=== PATIENT | male | born 1945 | race Caucasian/White ===

== ENCOUNTER 2017-09-04 16:49 | Emergency (ER) | payer MEDICARE, OTHER ==
[~2017-09-04 16:49] MED LIST: ISOVUE-370 76%-LOCM 1 ML ONE; Iopamidol 370 76% 50 ML VIAL FS ONE
[2017-09-04] MEDS ORDERED: HYDROcodone/Acetaminophen 5/325 mg Tablet ONE (18:00)
[2017-09-04 18:08] LABS: #Lymphocytes 1.3 thou/uL (1.20-3.40); #Monocytes 0.7 thou/uL (0.11-0.59); #Neutrophils 13.8 thou/uL (1.40-6.50); %Basophils 0.1 % (0.0-1.0); %Eosinophils 0.3 % (0.0-10.0); %Lymphocytes 7.9 % (21.0-51.0); %Monocytes 4.4 % (0.0-10.0); %Neutrophils 87.4 % (42.0-75.0); Hemoglobin 12.9 g/dL (14.0-18.0); Mean Corpuscular HGB CONC 34.2 g/dL (32.0-36.0); Mean Corpuscular Volume 99.3 fl (80.0-94.0); Mean Platelet Volume 7.6 fL (7.4-10.4); Platelet Count 190 thou/uL (130-400); RBC Distribution Width 12.2 % (11.5-14.5); White Blood Cell (WBC) Count 15.8 thou/uL (4.8-10.8)
[2017-09-04 18:15] LABS: PTT 25.6 SEC (22.9-36.1); Prothrombin Time 13.6 SEC (12.0-14.7)
[2017-09-04 18:35] LABS: Anion Gap 11 mmol/L (10-20); BUN (Urea Nitrogen) 17 mg/dL (8.4-25.7); Calc. Creatinine Clearance 0 mL/min (70-130); Calcium 10.2 mg/dL (7.8-10.44); Carbon Dioxide 28 mmol/L (23-31); Chloride 102 mmol/L (98-107); Estimated GFR-MDRD 66; Glucose 115 mg/dL (83-110); Sodium 138 mmol/L (136-145)
[2017-09-04] MEDS ORDERED: Pantoprazole 40 MG VIAL ONE (18:47)
[2017-09-04] MEDS ORDERED: Diphenoxylate HCl/Atropine Tablet ONE (21:05)
[2017-09-04] MEDS ORDERED: metroNIDAZOLE 250 MG TAB ONE (21:06)
[2017-09-04] MEDS ORDERED: Ondansetron ODT 8 MG TAB ONE (22:18)
--- NOTE | 2017-09-04 22:33 | CT ---
CT ABDOMEN AND PELVIS WITH CONTRAST 09/04/17 HISTORY: Abdominal pain. Rectal bleeding. Diarrhea. COMPARISON: CT abdomen and pelvis, 01/02/11. FINDINGS: Lung bases are clear. No pericardial effusion. Mild proximal small bowel mesenteric edema, similar to comparison examination, likely low grade mese nteric panniculitis or fibrosis. Bilateral renal calculi are present. No obstructing calculus. There are calculi within the urinary bl adder. Pancreas is unremarkable. There is some mild inflammatory stranding along the descending colon with w all thickening suggesting a colitis. The appendix is visualized and is normal. The aortic contour is mildly tortuous without aneurysmal dilatation. Small fat containing right sided indirect inguinal her gray containing a trace amount of fluid. Liver is mildly elongated. 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 Bilateral L5 p ars interarticularis defects with 6 mm anterolisthesis. IMPRESSION: 1. Descending colonic colitis without macroperforation or abscess formation. 2. Nonobstructive bilateral renal calculi as well as urinary bladder calculi. 3. Mesenteric panniculitis. POS: [facility]
== END 2017-09-04 22:57 | disposition home or self-care (01) ==
LOC: ERS 16:49
DX: K92.2 Gastrointestinal hemorrhage, unspecified (principal); K52.89 Other specified noninfective gastroenteritis and colitis; I10 Essential (primary) hypertension; Z87.891 Personal history of nicotine dependence; Z79.82 Long term (current) use of aspirin; Z79.899 Other long term (current) drug therapy
CPT/HCPCS: 36415; 74177; 80048; 85025; 85610; 85730; 86850; 86900; 86901; 96361; 96365; 96375; C9113; J0744

== ENCOUNTER 2019-06-03 14:55 | Outpatient (CLI) | payer MEDICARE, OTHER ==
--- NOTE | 2019-06-03 16:54 | MRI ---
MRI OF THE CERVICAL SPINE WITHOUT CONTRAST: 06/03/19 INDICATIONS: Cervical radiculopathy. Comparison made to MRI cervical spine 09/09/15. There are moderately severe degenerative changes of the cervical spine again noted. Anterior osteophy ezekiel from the cervical vertebrae. Mild wedging of the C5 and C6 vertebra again seen, stable in appeara nce. At C2-3, minimal disc bulge and spondylosis efface the anterior subarachnoid space. Findings are stab le at this level. At C3-4, disc bulge and spondylosis efface the anterior subarachnoid space and may abut the anterior cord. The degree of disc protrusion at this level has decreased when compared to 2016 at which time t here was mild impingement on the cord. There is foraminal stenosis bilaterally at this level due to f acet and uncinate hypertrophy. At C4-5, slight anterolisthesis is seen today and this is more prominent than on the prior study. Pos terior disc bulge and spondylosis is more pronounced. These changes efface the anterior subarachnoid space. Right foraminal stenosis secondary to hypertrophic change. At C5-6, disc bulge and spondylosis abut the anterior cord. Bilateral foraminal stenosis, more severe on the right due to uncinate hypertrophy. At C6-7, disc bulge and spondylosis. Slight posterolisthesis appears stable from the prior study. The se changes efface the anterior subarachnoid space without significant cord impingement. Bilateral for aminal stenosis, more severe on the right. Cord signal appears normal. IMPRESSION: Cervical canal stenosis with posterior disc and spondylosis is prominent at C4-5, C5-6 and C6-7. The findings at C3-4 are less pronounced than on the prior study as described above. POS: [facility]
--- NOTE | 2019-06-03 17:11 | RAD ---
CERVICAL SPINE 3 VIEWS: Lateral views obtained with neural, flexion, and extension. INDICATION: Cervical radiculopathy. FINDINGS: Moderately severe degenerative changes throughout the cervical spine. Loss of disc space at C2-3. Loss of disc space at C5-6 and C6-7. Anterolisthesis at C4-5. Posterior s pondylosis at C5-6 and C6-7. The anterolisthesis at C4-5 does not appear significantly changed with f lexion or extension. IMPRESSION: Moderately severe degenerative changes of the cervical spine. POS: [facility]
== END 2019-06-03 14:56 | disposition home or self-care (01) ==
LOC: TBSIIMAG 14:55
PROVIDERS: ATTEND Nurse Practitioner Family
DX: M47.22 Other spondylosis with radiculopathy, cervical region (principal); M48.02 Spinal stenosis, cervical region; M50.11 Cervical disc disorder with radiculopathy, high cervical region
CPT/HCPCS: 72040; 72141

== ENCOUNTER 2020-12-14 13:51 | Outpatient (CLI) | payer MEDICARE ==
[2020-12-14 16:25] LABS: Bilirubin Neg (Negative); Blood, Urine Negative (Negative); Glucose, Urine (Dipstick) Normal (Negative); Ketone, Urine Negative (Negative); Leukocyte Negative (Negative); Nitrite Negative (Negative); Protein, Urine (Dipstick) Negative (Neg-Trace); Urobilinogen Normal mg/dL (Less than 2)
[2020-12-14 16:42] LABS: #Eosinphils 0.3 10x3/uL (0.0-0.5); #Monocytes 0.6 10x3/uL (0.0-1.1); #Neutrophils 4.1 10x3/uL (1.5-8.4); %Basophils 0.4 % (0.0-2.0); %Eosinophils 4.4 % (0.0-6.0); %Lymphocytes 30.6 % (18.0-47.0); %Monocytes 8.5 % (0.0-10.0); Hemoglobin 12.4 g/dL (13.5-17.5); Mean Corpuscular Hemoglobin 33.2 pg (27.0-33.0); Mean Corpuscular Volume 100.5 fl (81.2-95.1); Mean Platelet Volume 10.9 fl (7.4-10.4); Platelet Count 229 10x3/uL (150-450); RBC Distribution Width 13.1 % (11.5-14.5); Red Blood Cell (RBC) Count 3.74 10x6/uL (4.32-5.72); White Blood Cell (WBC) Count 7.3 10x3/uL (3.5-10.5)
[2020-12-14 16:46] LABS: Clarity Clear (Clear)
[2020-12-14 16:52] LABS: Prothrombin Time 10.6 sec (9.5-12.1)
[2020-12-14 16:54] LABS: Anion Gap 13 mmol/L (10-20); BUN (Urea Nitrogen) 26 mg/dL (8.4-25.7); Calc. Creatinine Clearance 0 mL/min (70-130); Calcium 10.6 mg/dL (7.8-10.44); Carbon Dioxide 26 mmol/L (23-31); Chloride 107 mmol/L (98-107); Glucose 101 mg/dL (83-110); Potassium 3.8 mmol/L (3.5-5.1); Sodium 142 mmol/L (136-145)
[2020-12-14 17:00] LABS: Bacteria/HPF Rare-Few HPF (None Seen); RBC/HPF 0-3 HPF (0-3); Squamous Epithelial 0-3 HPF (0-3); WBC/HPF 0-3 HPF (0-3)
== END 2020-12-14 13:52 | disposition home or self-care (01) ==
LOC: LABBT 13:51
PROVIDERS: ATTEND Orthopaedic Surgery
DX: Z01.818 Encounter for other preprocedural examination (principal); M17.12 Unilateral primary osteoarthritis, left knee
CPT/HCPCS: 80048; 81001; 85025; 85610; 86850; 86900; 86901; 87081; 93005; 93010

== ENCOUNTER 2020-12-19 05:38 | Observation (INO) | payer MEDICARE ==
[2020-12-19] MEDS ORDERED: Tranexamic Acid 1,000 MG/10 ML VIAL ONE (05:47)
[2020-12-19] MEDS ORDERED: Sodium Chloride 0.9% 100 ML ONE (05:48)
[2020-12-19] MEDS ORDERED: Vancomycin 1.5 GRAM/300 ML BAG 1.5 GM in Premix Bag 1 BAG IVPB SCH (06:00)
[2020-12-19] MEDS ORDERED: Midazolam HCl 2 mg/2 ml Vial ONE (06:28)
[2020-12-19] MEDS ORDERED: Lidocaine 1% (PF) 30 ML VIAL ONE (06:28)
[2020-12-19] MEDS ORDERED: Fentanyl 100 MCG/2 ML VIAL ONE ×2 (06:28→07:10)
[2020-12-19 06:31] LABS: Prothrombin Time 13.4 sec (12.0-14.7)
[2020-12-19] MEDS ORDERED: EPINEPHrine 1 MG/ML AMP ONE (06:34)
[2020-12-19] MEDS ORDERED: Bupivacaine PF 0.5% 30 ML VIAL ONE (06:45)
[2020-12-19] MEDS ORDERED: ePHEDrine Sulfate 50 MG/10 ML VIAL ONE (07:10)
[2020-12-19] MEDS ORDERED: Ropivacaine 0.5% HCl/PF (150 MG/30 ML VIAL) ONE (07:10)
[2020-12-19] MEDS ORDERED: Ketorolac Tromethamine 30 MG/ML VIAL ONE (07:10)
[2020-12-19] MEDS ORDERED: Ondansetron PF 4 MG/2 ML Vial ONE (07:10)
[2020-12-19] MEDS ORDERED: Glycopyrrolate 0.2 MG/ML 5 ML SYRINGE ONE (07:10)
[2020-12-19] MEDS ORDERED: Lidocaine 1% PF 5 ML VIAL ONE (07:10)
[2020-12-19] MEDS ORDERED: Ropivacaine 2% HCl/PF (20 MG/10 ML VIAL) ONE (07:10)
[2020-12-19] MEDS ORDERED: PROPOFOL 200 MG/20 ML VIAL ONE (07:10)
[2020-12-19] MEDS ORDERED: Fentanyl 100 MCG/2 ML VIAL SLOW IVP PRN (07:17)
[2020-12-19] MEDS ORDERED: Zolpidem Tartrate 5 MG TAB PO PRN ×2 (07:27→07:30)
[2020-12-19] MEDS ORDERED: Ondansetron PF 4 MG/2 ML Vial IVP PRN ×2 (07:27→07:30)
[2020-12-19] MEDS ORDERED: diphenhydrAMINE 25 MG CAP PO PRN (07:27)
[2020-12-19] MEDS ORDERED: Promethazine HCl 25 MG/ML VIAL IM PRN ×2 (07:27→07:30)
[2020-12-19] MEDS ORDERED: Acetaminophen 325 MG TAB PO PRN (07:27)
[2020-12-19] MEDS ORDERED: Tranexamic Acid 1,000 MG in Sodium Chloride 0.9% 100 ML IVPB SCH (07:30)
[2020-12-19] MEDS ORDERED: traMADol HCl 50 MG TAB PO PRN ×2 (07:30)
[2020-12-19] MEDS ORDERED: HYDROcodone/Acetaminophen 10/325 mg Tablet PO PRN (07:30)
[2020-12-19] MEDS: Sodium Chloride 0.9% 1,000 ML IV SCH ×2 (11:40→19:28)
[2020-12-19] MEDS: Lisinopril 20 MG TAB PO SCH ×2 (11:41→20:16)
[2020-12-19] MEDS: Ferrous Gluconate 324 MG TAB PO SCH ×2 (11:41→20:15)
[2020-12-19] MEDS: Aspirin 81 mg Enteric Coated Tablet PO SCH ×2 (11:41→20:15)
[2020-12-19] MEDS: NIFEdipine XL 60 MG TAB PO SCH ×2 (11:41→20:15)
[2020-12-19] MEDS: Hydrochlorothiazide 25 MG TAB PO SCH (11:41)
[2020-12-19] MEDS: Cyanocobalamin (Vitamin B-12) 1,000 MCG TAB PO SCH (11:41)
[2020-12-19] MEDS: Multivitamin W/ Minerals 1 TAB PO SCH (11:41)
[2020-12-19] MEDS: Senokot S 8.6-50 MG TAB PO SCH ×2 (11:42→20:16)
[2020-12-19] MEDS: Vit A,C & E/Lutein/Minerals Tablet PO SCH (11:42)
[2020-12-19 11:45] VITALS: BMI 28.0
[2020-12-19] MEDS: Ketorolac Tromethamine 30 MG/ML VIAL IVP SCH ×2 (12:15→18:13)
[2020-12-19] MEDS: CEFAZOLIN 2 GM in Premix Bag 1 BAG IVPB SCH ×2 (14:20→21:46)
[2020-12-19] MEDS ORDERED: Vancomycin HCl 1.5 GM in Sodium Chloride 0.9% 250 ML 300 ML IVPB SCH (18:00)
[2020-12-19] MEDS: Atorvastatin Calcium 10 MG TAB PO SCH (20:15)
[2020-12-19] MEDS ORDERED: Atorvastatin Calcium 10 MG TAB PO SCH (21:00)
[2020-12-20] MEDS: Ketorolac Tromethamine 30 MG/ML VIAL IVP SCH ×5 (00:33→18:18)
[2020-12-20] MEDS: Sodium Chloride 0.9% 1,000 ML IV SCH ×2 (04:33→18:06)
[2020-12-20 05:45] LABS: Hemoglobin 10.1 g/dL (14.0-18.0); Mean Corpuscular Hemoglobin 34.1 pg (27.0-31.0); Mean Platelet Volume 8.1 fL (7.4-10.4); Platelet Count 174 thou/uL (130-400); Red Blood Cell (RBC) Count 2.96 mill/uL (4.70-6.10); White Blood Cell (WBC) Count 10.3 thou/uL (4.8-10.8)
[2020-12-20] MEDS: Multivitamin W/ Minerals 1 TAB PO SCH (08:44)
[2020-12-20] MEDS: NIFEdipine XL 60 MG TAB PO SCH ×2 (08:44→21:43)
[2020-12-20] MEDS: Senokot S 8.6-50 MG TAB PO SCH ×2 (08:44→21:43)
[2020-12-20] MEDS: Cyanocobalamin (Vitamin B-12) 1,000 MCG TAB PO SCH (08:44)
[2020-12-20] MEDS: Folic Acid 1 MG TAB PO SCH (08:44)
[2020-12-20] MEDS: Aspirin 81 mg Enteric Coated Tablet PO SCH ×2 (08:44→21:43)
[2020-12-20] MEDS: Vit A,C & E/Lutein/Minerals Tablet PO SCH (08:44)
[2020-12-20] MEDS: Lisinopril 20 MG TAB PO SCH ×2 (08:45→21:43)
[2020-12-20] MEDS: Ferrous Gluconate 324 MG TAB PO SCH ×2 (08:45→21:43)
[2020-12-20] MEDS: Hydrochlorothiazide 25 MG TAB PO SCH (08:45)
[2020-12-20] MEDS: Ropivacaine HCl/PF 250 ML in Premix Bag 1 BAG NERVE BLCK SCH ×2 (10:46→12:37)
[2020-12-20] MEDS: HYDROcodone/Acetaminophen 10/325 mg Tablet PO PRN (12:59)
[2020-12-20] MEDS: Atorvastatin Calcium 10 MG TAB PO SCH (21:43)
[2020-12-21] MEDS: Ketorolac Tromethamine 30 MG/ML VIAL IVP SCH ×2 (01:09→05:57)
[2020-12-21] MEDS: Sodium Chloride 0.9% 1,000 ML IV SCH ×2 (01:09→09:09)
[2020-12-21 05:55] LABS: Hemoglobin 11.1 g/dL (14.0-18.0); Mean Corpuscular HGB CONC 33.6 g/dL (32.0-36.0); Mean Corpuscular Hemoglobin 34.3 pg (27.0-31.0); Mean Platelet Volume 8.2 fL (7.4-10.4); Platelet Count 184 thou/uL (130-400); RBC Distribution Width 12.1 % (11.5-14.5); Red Blood Cell (RBC) Count 3.23 mill/uL (4.70-6.10); White Blood Cell (WBC) Count 12.6 thou/uL (4.8-10.8)
[2020-12-21] MEDS: HYDROcodone/Acetaminophen 10/325 mg Tablet PO PRN ×2 (05:56→11:36)
[2020-12-21] MEDS: Vit A,C & E/Lutein/Minerals Tablet PO SCH (08:54)
[2020-12-21] MEDS: Senokot S 8.6-50 MG TAB PO SCH (08:54)
[2020-12-21] MEDS: Ferrous Gluconate 324 MG TAB PO SCH (08:55)
[2020-12-21] MEDS: Folic Acid 1 MG TAB PO SCH (08:55)
[2020-12-21] MEDS: Multivitamin W/ Minerals 1 TAB PO SCH (08:55)
[2020-12-21] MEDS: Aspirin 81 mg Enteric Coated Tablet PO SCH (08:55)
[2020-12-21] MEDS: Cyanocobalamin (Vitamin B-12) 1,000 MCG TAB PO SCH (08:55)
[2020-12-21] MEDS: Lisinopril 20 MG TAB PO SCH (08:56)
[2020-12-21] MEDS: NIFEdipine XL 60 MG TAB PO SCH (08:56)
[2020-12-21] MEDS: Hydrochlorothiazide 25 MG TAB PO SCH (08:56)
[2020-12-21] MEDS ORDERED: Polyethylene Glycol 3350 17 GM Packet PO SCH (09:00)
[2020-12-21 11:57] VITALS: BP 112/63; TEMP 98.2
== END 2020-12-21 13:04 | disposition home or self-care (01) ==
LOC: SDC 05:38 → SJJU 07:27 → SDC 16:26
PROVIDERS: ADMIT Orthopaedic Surgery; ATTEND Orthopaedic Surgery
PROC: 0SRD0J9 Replacement of Left Knee Joint with Synthetic Substitute, Cemented, Open Approach (ICD-10-PCS; principal; 2020-12-19)
PROC: 8E0YXBZ Computer Assisted Procedure of Lower Extremity (ICD-10-PCS; 2020-12-19)
PROC: 3E0T3BZ Introduction of Anesthetic Agent into Peripheral Nerves and Plexi, Percutaneous Approach (ICD-10-PCS; 2020-12-19)
PROC: 3E0T3BZ Introduction of Anesthetic Agent into Peripheral Nerves and Plexi, Percutaneous Approach (ICD-10-PCS; 2020-12-19)
DX: M17.12 Unilateral primary osteoarthritis, left knee (principal); G89.18 Other acute postprocedural pain; D64.9 Anemia, unspecified; I10 Essential (primary) hypertension; E11.9 Type 2 diabetes mellitus without complications; E78.5 Hyperlipidemia, unspecified; N40.0 Benign prostatic hyperplasia without lower urinary tract symptoms; G47.33 Obstructive sleep apnea (adult) (pediatric); G25.81 Restless legs syndrome; M10.9 Gout, unspecified; Z87.891 Personal history of nicotine dependence; Z79.1 Long term (current) use of non-steroidal anti-inflammatories (NSAID); Z79.84 Long term (current) use of oral hypoglycemic drugs; Z79.899 Other long term (current) drug therapy; Z88.8 Allergy status to other drugs, medicaments and biological substances; Z96.651 Presence of right artificial knee joint
CPT/HCPCS: 20985; 27447; 64445; 64448; 82962; 85027 ×2; 85610; 97110 ×2; 97116 ×3; 97139 ×2; 97530 ×2; C1713; C1776; 36415; 36416; 96374; 96375; 96376; G0378; J0171; J0690; J1885; J2001; J2250; J2405; J2704; J2795; J3010; J3370; J3490; J7050; S0020

== ENCOUNTER 2021-02-20 08:38 | Outpatient (CLI) | payer MEDICARE | END 2021-02-20 08:39 | disposition home or self-care (01) | LOC: BICMRI 08:38 | PROVIDERS: ATTEND Family Medicine | DX: F03.90 Unspecified dementia, unspecified severity, without behavioral disturbance, psychotic disturbance, mood disturbance, and anxiety (principal) | CPT/HCPCS: 70551 ==

== ENCOUNTER 2021-02-22 15:44 | Outpatient (CLI) | payer MEDICARE | END 2021-02-22 15:45 | disposition home or self-care (01) | LOC: ULT 15:44 | PROVIDERS: ATTEND Orthopaedic Surgery | DX: R22.42 Localized swelling, mass and lump, left lower limb (principal) ==

== ENCOUNTER 2022-05-03 19:00 | Outpatient (CLI) | payer MEDICARE | END 2022-05-03 19:01 | disposition home or self-care (01) | LOC: SLEEPLAB 19:00 | PROVIDERS: ATTEND Family Medicine | DX: G47.33 Obstructive sleep apnea (adult) (pediatric) (principal); R06.83 Snoring; G47.10 Hypersomnia, unspecified; E66.9 Obesity, unspecified; Z68.28 Body mass index [BMI] 28.0-28.9, adult | CPT/HCPCS: 95811 ==

== ENCOUNTER 2024-01-01 11:10 | Outpatient (CLI) | payer MEDICARE ==
[2024-01-01 12:20] LABS: Bilirubin Neg (Negative); Blood, Urine Negative (Negative); Clarity Clear (Clear); Glucose, Urine (Dipstick) Normal (Negative); Ketone, Urine Negative (Negative); Leukocyte 25 (Negative); Nitrite Negative (Negative); Protein, Urine (Dipstick) Negative (Neg-Trace); Specific Gravity, Urine 1.015 (1.005-1.030); Urobilinogen Normal mg/dL (Less than 2)
[2024-01-01 12:22] LABS: #Basophils 0.05 10x3/uL (0.0-0.2); #Eosinphils 0.25 10x3/uL (0.0-0.5); #Monocytes 0.45 10x3/uL (0.0-1.1); #Neutrophils 5.74 10x3/uL (1.5-8.4); %Basophils 0.6 % (0.0-2.0); %Lymphocytes 22.8 % (18.0-47.0); %Monocytes 5.3 % (0.0-10.0); %Neutrophils 68.1 % (40.0-75.0); Hematocrit 37.6 % (38.8-50.0); Hemoglobin 12.9 g/dL (13.5-17.5); Mean Corpuscular HGB CONC 34.3 g/dL (32.0-36.0); Mean Corpuscular Hemoglobin 34.1 pg (27.0-33.0); Mean Corpuscular Volume 99.5 fL (81.2-95.1); Mean Platelet Volume 10.2 fL (7.4-10.4); Platelet Count 231 10x3/uL (150-450); RBC Distribution Width 13.4 % (11.5-14.5); Red Blood Cell (RBC) Count 3.78 10x6/uL (4.32-5.72); White Blood Cell (WBC) Count 8.4 10x3/uL (3.5-10.5)
[2024-01-01 12:33] LABS: Prothrombin Time 10.8 sec (9.5-12.1)
[2024-01-01 12:36] LABS: Anion Gap 13 mmol/L (10-20); BUN (Urea Nitrogen) 30 mg/dL (8.4-25.7); Calc. Creatinine Clearance 0 mL/min (70-130); Calcium 10.4 mg/dL (7.8-10.44); Carbon Dioxide 26 mmol/L (23-31); Chloride 108 mmol/L (98-107); Estimated GFR 63; Glucose 115 mg/dL (83-110); Potassium 4.1 mmol/L (3.5-5.1); Sodium 143 mmol/L (136-145)
== END 2024-01-01 11:11 | disposition home or self-care (01) ==
LOC: LABBT 11:10
PROVIDERS: ATTEND Orthopaedic Surgery
DX: Z01.818 Encounter for other preprocedural examination (principal); T84.018A Broken internal joint prosthesis, other site, initial encounter
CPT/HCPCS: 71046; 80048; 81003; 85025; 85610; 87081

== ENCOUNTER 2024-01-01 11:30 | Inpatient (IN) | payer MEDICARE ==
[2024-01-01 12:36] VITALS: BMI 29.5
[2024-01-06] MEDS ORDERED: Midazolam HCl 2 mg/2 ml Vial ONE ×2 (06:13→06:26)
[2024-01-06] MEDS ORDERED: PROPOFOL 20 ML ONE (06:13)
[2024-01-06] MEDS ORDERED: fentaNYL PF 100 MCG/2 ML SYRINGE ONE ×2 (06:13→07:35)
[2024-01-06] MEDS ORDERED: Vancomycin 1 GM VIAL ONE (06:16)
[2024-01-06] MEDS ORDERED: Bupivacaine PF 0.5% 30 ML VIAL ONE ×2 (06:16→06:26)
[2024-01-06] MEDS ORDERED: Tobramycin Sulfate 1.2 GM VIAL ONE (06:16)
[2024-01-06] MEDS ORDERED: Vancomycin (BATCH) 1.5 GM/300 ML BAG ONE (06:19)
[2024-01-06] MEDS ORDERED: Tranexamic Acid 1,000 MG/10 ML VIAL ONE ×2 (06:19→09:44)
[2024-01-06] MEDS ORDERED: Sodium Chloride 0.9% 100 ML ONE ×2 (06:19→06:59)
[2024-01-06] MEDS ORDERED: fentaNYL 50 mcg/mL 1 mL Vial ONE (06:26)
[2024-01-06] MEDS ORDERED: Lidocaine 1% (PF) 30 ML VIAL ONE (06:27)
[2024-01-06] MEDS ORDERED: Bupivacaine HCl 0.5%/Epinephrine 1:200,000/PF 30 ml Vial ONE (06:50)
[2024-01-06] MEDS ORDERED: CEFAZOLIN 2 GM VIAL ONE (06:59)
[2024-01-06] MEDS ORDERED: fentaNYL 50 mcg/mL 1 mL Vial SLOW IVP PRN (07:14)
[2024-01-06] MEDS ORDERED: Zolpidem Tartrate 5 MG TAB PO PRN ×2 (07:15→09:41)
[2024-01-06] MEDS ORDERED: Promethazine HCl 25 MG/ML VIAL IM PRN ×2 (07:15→09:41)
[2024-01-06] MEDS ORDERED: HYDROcodone/Acetaminophen 10/325 mg Tablet PO PRN ×2 (07:15)
[2024-01-06] MEDS ORDERED: traMADol HCl 50 MG TAB PO PRN ×2 (07:15)
[2024-01-06] MEDS ORDERED: Ropivacaine 0.2% 550 ML 550 ML NERVE BLCK SCH (07:15)
[2024-01-06] MEDS ORDERED: Ondansetron PF 4 MG/2 ML Vial IVP PRN ×2 (07:15→09:41)
[2024-01-06] MEDS ORDERED: ePHEDrine Sulfate 50 MG/10 ML VIAL ONE (07:22)
[2024-01-06] MEDS ORDERED: Glycopyrrolate 0.2 MG/ML 5 ML SYRINGE ONE (07:24)
[2024-01-06] MEDS ORDERED: PHENYLEPHRINE-NS 100 MCG/ML 10 ML SYRINGE ONE (07:28)
[2024-01-06] MEDS ORDERED: HYDROmorphone 2 MG/ML VIAL ONE (09:06)
[2024-01-06] MEDS ORDERED: Ondansetron HCl/PF 4 MG/2 ML Vial IVP PRN (09:16)
[2024-01-06] MEDS ORDERED: Ondansetron PF 4 MG/2 ML Vial ONE (09:24)
[2024-01-06] MEDS ORDERED: diphenhydrAMINE 25 MG CAP PO PRN (09:41)
[2024-01-06] MEDS ORDERED: Acetaminophen 325 MG TAB PO PRN (09:41)
[2024-01-06] MEDS ORDERED: Meloxicam 7.5 MG TAB PO PRN ×2 (09:42→09:52)
[2024-01-06] MEDS ORDERED: Tranexamic Acid 1,000 MG in Sodium Chloride 0.9% 100 ML IVPB SCH (09:45)
[2024-01-06] MEDS: CEFAZOLIN 2 GM in Sodium Chloride 0.9% 100 ML IVPB SCH (14:21)
[2024-01-06] MEDS: Ketorolac Tromethamine 30 MG (1 mL) VIAL IVP SCH (14:21)
[2024-01-06] MEDS: Sodium Chloride 0.9% 1,000 ML IV SCH (19:28)
[2024-01-06] MEDS: Vancomycin 1.5 GM in Sodium Chloride 0.9% 250 ML 300 ML IVPB SCH (19:32)
[2024-01-06] MEDS ORDERED: Atorvastatin Calcium 10 MG TAB PO SCH (21:00)
[2024-01-06] MEDS ORDERED: Non-Formulary Item 1 EACH (Lisinopril [Lisinopril] 40 MG Tablet) PO SCH (21:00)
[2024-01-06] MEDS: Senokot S 8.6-50 MG TAB PO SCH (21:05)
[2024-01-06] MEDS: Atorvastatin Calcium 10 MG TAB PO SCH (21:06)
[2024-01-06] MEDS: Lisinopril 20 MG TAB PO SCH (21:06)
[2024-01-06] MEDS: Aspirin 81 mg Enteric Coated Tablet PO SCH (21:06)
[2024-01-06] MEDS: Ferrous Gluconate 324 MG TAB PO SCH (21:06)
[2024-01-06] MEDS: Memantine 10 MG TAB PO SCH (21:06)
[2024-01-06] MEDS: metFORMIN XR 500 MG ER.TAB PO SCH (21:06)
[2024-01-07 06:15] LABS: Hematocrit 28.9 % (42.0-52.0); Hemoglobin 9.6 g/dL (14.0-18.0); Mean Corpuscular HGB CONC 33.2 g/dL (32.0-36.0); Mean Corpuscular Volume 99.3 fL (78.0-98.0); Mean Platelet Volume 10.3 fL (7.4-10.4); Platelet Count 168 10x3/uL (130-400); Red Blood Cell (RBC) Count 2.91 mill/uL (4.70-6.10)
[2024-01-07 07:59] VITALS: BP 107/63; TEMP 98.1
[2024-01-07] MEDS: Cyanocobalamin (Vitamin B-12) 1,000 MCG TAB PO SCH (08:51)
[2024-01-07] MEDS: Polyethylene Glycol 3350 17 GM Packet PO SCH (08:51)
[2024-01-07] MEDS: Multivitamin W/ Minerals 1 TAB PO SCH (08:52)
[2024-01-07] MEDS: Folic Acid 1 MG TAB PO SCH (08:52)
[2024-01-07] MEDS: Spironolactone 25 MG TAB PO SCH (08:52)
[2024-01-07] MEDS: Amlodipine 10 MG TAB PO SCH (08:52)
[2024-01-07] MEDS: Hydrochlorothiazide 25 MG TAB PO SCH (08:52)
[2024-01-07] MEDS ORDERED: Non-Formulary Item 1 EACH (Folic Acid [Folic Acid] 0.8 MG Tablet) PO SCH (09:00)
[2024-01-07] MEDS ORDERED: Aspirin 81 mg Enteric Coated Tablet PO SCH (09:00)
[2024-01-07] MEDS ORDERED: Multivitamin W/ Minerals 1 TAB PO SCH (09:00)
[2024-01-07] MEDS ORDERED: Hydrochlorothiazide 25 MG TAB PO SCH (09:00)
== END 2024-01-07 15:26 | disposition home or self-care (01) | DRG 465 ==
LOC: SURG A 01-06 05:33 → EDSTATUS 01-06 11:30
PROVIDERS: ADMIT Orthopaedic Surgery; ATTEND Orthopaedic Surgery
PROC: 0SPD0JZ Removal of Synthetic Substitute from Left Knee Joint, Open Approach (ICD-10-PCS; principal; 2024-01-06)
PROC: 3E033XZ Introduction of Vasopressor into Peripheral Vein, Percutaneous Approach (ICD-10-PCS; 2024-01-06)
DX: T84.033A Mechanical loosening of internal left knee prosthetic joint, initial encounter (principal); I10 Essential (primary) hypertension; E11.9 Type 2 diabetes mellitus without complications; E78.5 Hyperlipidemia, unspecified; N40.0 Benign prostatic hyperplasia without lower urinary tract symptoms; M19.90 Unspecified osteoarthritis, unspecified site; G89.29 Other chronic pain; G47.33 Obstructive sleep apnea (adult) (pediatric); G25.81 Restless legs syndrome; Z96.651 Presence of right artificial knee joint; Z87.891 Personal history of nicotine dependence; Z98.890 Other specified postprocedural states; Z98.41 Cataract extraction status, right eye; Z88.8 Allergy status to other drugs, medicaments and biological substances
CPT/HCPCS: 36415; 85027; A4306; C1713; C1776; C1889; J0665; J1170; J1885; J2001; J2250; J2405; J2704; J2795; J3010; J3260; J3370; J3490; J7050